=== PATIENT | female | born 1975 | race Hispanic/Latino ===

== ENCOUNTER 2016-11-12 08:37 | Day surgery (SDC) | payer OTHER ==
[2016-11-09 10:36] VITALS: BMI 24.1
[2016-11-12] MEDS ORDERED: Propofol 10 mg/ml Inj (20 ML) ONE ×2 (12:06→12:29)
[2016-11-12] MEDS ORDERED: Labetalol 5 mg/ml Inj 20ML ONE (12:37)
[2016-11-12 13:23] VITALS: BP 100/63; PULSE 64; RESP 16; TEMP 97.5; O2SAT 100
== END 2016-11-12 14:09 | disposition home or self-care (01) ==
LOC: ENDO 08:37
PROVIDERS: ATTEND Internal Medicine Gastroenterology
DX: K62.5 Hemorrhage of anus and rectum (principal); K64.8 Other hemorrhoids; K64.4 Residual hemorrhoidal skin tags; K63.89 Other specified diseases of intestine
CPT/HCPCS: 45378; J2001; J2704; J3010; J7040